=== PATIENT | male | born 1990 | race American Indian/Alaskan Native ===

== ENCOUNTER 2018-08-10 21:50 | Emergency (ER) | payer SELFPAY ==
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
[2018-08-10 22:32] LABS: Bilirubin,Urine NEG (Negative); Blood,Urine NEG (Negative); Color,Urine Straw (Yellow); Protein,Urine <15 mg/dL mg/dL (Negative); WBC,Urine < 1.0 /HPF (0.0-6.0)
[2018-08-10 22:40] LABS: Amphetamine Screen,Urine PRESUMPTIVE NEGATIVE; Benzodiazepines Screen,Urine PRESUMPTIVE NEGATIVE; Cannabinoid Screen,Urine PRESUMPTIVE NEGATIVE; Cocaine Screen,Urine PRESUMPTIVE NEGATIVE; Methadone Screen,Urine PRESUMPTIVE NEGATIVE; Opiate Screen,Urine PRESUMPTIVE NEGATIVE
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
[2018-08-10 23:06] LABS: Basophils # (Auto) 0.1 K/mm3 (0.0-0.1); Basophils % (Auto) 1.3 % (0.0-1.8); Eosinophils # (Auto) 0.2 K/mm3 (0.0-0.4); Eosinophils % (Auto) 2.5 % (0.0-4.3); Hematocrit 46.1 % (35.5-45.6); Lymphocytes # (Auto) 1.7 K/mm3 (1.2-5.4); Lymphocytes % (Auto) 20.7 % (13.4-35.0); Mean Corpuscular HGB Conc 33 % (32-34); Mean Corpuscular Volume 77 fl (84-94); Monocytes # (Auto) 0.5 K/mm3 (0.0-0.8); Monocytes % (Auto) 6.5 % (0.0-7.3); Platelet Count 263 K/mm3 (140-440); Red Blood Count 5.98 M/mm3 (3.65-5.03); Red Cell Distribution Width 14.3 % (13.2-15.2)
[2018-08-11 00:38] LABS: Alanine Aminotransferase 124 units/L (7-56); Albumin 4.8 g/dL (3.9-5); BUN/Creatinine Ratio 8; Blood Urea Nitrogen 8 mg/dL (9-20); Calcium 9.7 mg/dL (8.4-10.2); Hemolysis Index 11
[2018-08-11] MEDS ORDERED: HumuLIN R SUB-Q ONE (00:55)
[2018-08-11] MEDS: GLUCOPHAGE PO SCH ×3 (01:28→18:05)
[2018-08-11 09:25] LABS: Basophils # (Auto) 0.1 K/mm3 (0.0-0.1); Basophils % (Auto) 1.1 % (0.0-1.8); Eosinophils # (Auto) 0.3 K/mm3 (0.0-0.4); Hematocrit 44.7 % (35.5-45.6); Hemoglobin 14.3 gm/dl (11.8-15.2); Lymphocytes # (Auto) 1.7 K/mm3 (1.2-5.4); Lymphocytes % (Auto) 24.7 % (13.4-35.0); Mean Corpuscular HGB Conc 32 % (32-34); Mean Corpuscular Volume 76 fl (84-94); Monocytes # (Auto) 0.6 K/mm3 (0.0-0.8); Monocytes % (Auto) 8.6 % (0.0-7.3); Platelet Count 226 K/mm3 (140-440); Red Blood Count 5.88 M/mm3 (3.65-5.03); Red Cell Distribution Width 14.2 % (13.2-15.2)
[2018-08-11 09:48] LABS: Alanine Aminotransferase 108 units/L (7-56); Albumin 4.4 g/dL (3.9-5); BUN/Creatinine Ratio 11; Blood Urea Nitrogen 8 mg/dL (9-20); Calcium 9.1 mg/dL (8.4-10.2); Hemolysis Index 88
[2018-08-11] MEDS ORDERED: ATIVAN PO ONE (10:18)
--- NOTE | 2018-08-11 12:42 | Consultation ---
History of Present Illness - Reason for Consult Consult date: 08/11/18 Reason for consult: Mental Health Evaluation Requesting physician: JAQUELIN TORRES - Chief Complaint Chief complaint: "I feel horrible" - History of Present Psychiatric Illness 27 y.o. AA male who presented to the ER for HI/SI's. Today the patient is calm, but vague during the assessment. He stated that he was having issues with his health which has caused him to be suicidal. He wouldn't answers directly reference his mental health. He stated, "I don't feel at all." He would not confirm or deny seeing a psychiatrist when asked. He denies HI's and AVH's. He continues to endorse SI's, but would not confirm a suicide plan. Medications and Allergies Allergies Allergy/AdvReac Type Severity Reaction Status Date / Time No Known Allergies Allergy Unverified 08/10/18 21:54 Home Medications Medication Instructions Recorded Confirmed Last Taken Type Unobtainable 08/11/18 08/11/18 Unknown History Active Meds: Active Medications Metformin HCl (Glucophage) 500 mg PO BIDDIAB KIARA Last Admin: 08/11/18 10:25 Dose: 500 mg Documented by: Past psychiatric history - Past Medical History Past Medical History: diabetes Past Surgical History: No surgical history - past Psychiatric treatment and history psychiatric treatment history: Denies a psy hx and fam psy hx. Mental Status Exam - Vital signs Last Vital Signs Temp 98.0 F 08/11/18 02:41 Pulse 97 H 08/11/18 02:41 Resp 16 08/11/18 02:41 BP 127/87 08/11/18 02:41 Pulse Ox 100 08/11/18 02:41 - Exam Narrative exam: MSE: Appearance: calm Behavior: regular eye contact Speech: regular rate and tone Mood: withdrawn Affect: flat Thought Process: circumstantial Thought Content: denies HI's and AVH's Motor Activity: ambulatory Cognition: A/O x3 Insight: limited Judgment: poor Results Result Diagrams: 08/11/18 09:17 08/11/18 09:17 Abnormal lab results 08/10/18 08/10/18 08/11/18 Range/Units 22:36 22:36 00:54 RBC 5.98 H (3.65-5.03) M/mm3 Hct 46.1 H (35.5-45.6) % MCV 77 L (84-94) fl MCH 25 L (28-32) pg [place] % (Auto) (0.0-7.3) % Sodium 134 L (137-145) mmol/L Chloride 92.4 L (98-107) mmol/L BUN 8 L (9-20) mg/dL Creatinine (0.8-1.5) mg/dL Glucose 633 H* (75-100) mg/dL POC Glucose 469 H (70-105) AST 105 H (5-40) units/L ALT 124 H (7-56) units/L Alkaline Phosphatase 146 H (35-129) units/L Total Creatine Kinase (55-170) units/L Salicylates (2.8-20.0) mg/dL Acetaminophen (10.0-30.0) ug/mL 08/11/18 08/11/18 08/11/18 Range/Units 02: 09:17 09:17 RBC 5.88 H (3.65-5.03) M/mm3 Hct (35.5-45.6) % MCV 76 L (84-94) fl MCH 24 L (28-32) pg [place] % (Auto) 8.6 H (0.0-7.3) % Sodium 134 L (137-145) mmol/L Chloride 91.3 L (98-107) mmol/L BUN 8 L (9-20) mg/dL Creatinine 0.7 L (0.8-1.5) mg/dL Glucose 404 H (75-100) mg/dL POC Glucose 380 H (70-105) AST 94 H (5-40) units/L ALT 108 H (7-56) units/L Alkaline Phosphatase 140 H (35-129) units/L Total Creatine Kinase (55-170) units/L Salicylates (2.8-20.0) mg/dL Acetaminophen (10.0-30.0) ug/mL 08/11/18 08/11/18 08/11/18 Range/Units 09:17 10:16 10:23 RBC (3.65-5.03) M/mm3 Hct (35.5-45.6) % MCV (84-94) fl MCH (28-32) pg [place]alle % (Auto) (0.0-7.3) % Sodium (137-145) mmol/L Chloride (98-107) mmol/L BUN (9-20) mg/dL Creatinine (0.8-1.5) mg/dL Glucose (75-100) mg/dL POC Glucose 376 H (70-105) AST (5-40) units/L ALT (7-56) units/L Alkaline Phosphatase (35-129) units/L Total Creatine Kinase 197 H (55-170) units/L Salicylates < 0.3 L (2.8-20.0) mg/dL Acetaminophen (10.0-30.0) ug/mL 08/11/18 Range/Units 10:23 RBC (3.65-5.03) M/mm3 Hct (35.5-45.6) % MCV (84-94) fl MCH (28-32) pg [place] % (Auto) (0.0-7.3) % Sodium (137-145) mmol/L Chloride (98-107) mmol/L BUN (9-20) mg/dL Creatinine (0.8-1.5) mg/dL Glucose (75-100) mg/dL POC Glucose (70-105) AST (5-40) units/L ALT (7-56) units/L Alkaline Phosphatase (35-129) units/L Total Creatine Kinase (55-170) units/L Salicylates (2.8-20.0) mg/dL Acetaminophen < 5.0 L (10.0-30.0) ug/mL All other labs normal. Assessment and Plan Assessment and plan: Impression: MDD, Severe Type. Today the patient is calm, but vague during the assessment. The patient endorsed SI's. LF trending down. UDS is negative. DDx: R/O Bipolar DO Recommendation/Plan: Continue 1013 and start Zoloft 25 mg PO daily for depression. Discussed possible sucidality/medication induced rachelle with the patient reference Zoloft. Dispo: The patient will be referred to inpatient psy services once medically clear. Will staff with Dr Corcoran.
[2018-08-11] MEDS: ZOLOFT PO SCH (18:05)
[2018-08-12] MEDS ORDERED: IBUPROFEN PO ONE ×2 (02:24→02:25)
[2018-08-12] MEDS: GLUCOPHAGE PO SCH ×2 (08:52→17:11)
[2018-08-12] MEDS: ZOLOFT PO SCH (10:53)
[2018-08-12 11:42] LABS: Alanine Aminotransferase 78 units/L (7-56)
--- NOTE | 2018-08-12 13:53 | Progress Note ---
Subjective - Reason for Consult Consult date: 08/12/18 Reason for consult: Psychiatry Follow-up - Chief Complaint Chief complaint: "When can I be transferred" 27 y.o. AA male who presented to the ER for HI/SI's. Today the patient is calm during the assessment. He stated that he used Heroin a couple days prior to coming to the ER. His UDS is negative at this time. He stated having anxiety, but denies N/V and body aches. He would not confirm or deny SI's when asked. he denies HI's and AVH's. He denies any side effects of his medication. Mental Status Exam - Vital signs Last Vital Signs Temp 98.4 F 08/12/18 07:52 Pulse 99 H 08/12/18 07:52 Resp 20 08/12/18 07:52 BP 135/94 08/12/18 07:52 Pulse Ox 98 08/12/18 07:52 - Exam Narrative exam: MSE: Appearance: calm Behavior: regular eye contact Speech: regular rate and tone Mood: withdrawn Affect: congruent to mood Thought Process: circumstantial Thought Content: denies HI's and AVH's Motor Activity: ambulatory Cognition: A/O x3 Insight: variable Judgment:variable Assessment and Plan Impression: MDD, Severe Type. Unspecified Anxiety DO. Additional Dx: R/O Opioid Use DO. Today the patient is calm during the assessment. The patient will not confirm or deny SI's. LF trending down. UDS is negative. DDx: R/O Bipolar DO Recommendation/Plan: Continue 1013 and Zoloft 25 mg PO daily for depression/anxiety. Start Vistaril 25 mg PO TID for anxiety. Discussed possible sucidality/medication induced rachelle with the patient reference Zoloft. Dispo: The patient wias referred to inpatient psy services. Will staff with Dr Corcoran.
[2018-08-12] MEDS: VISTARIL PO SCH ×2 (14:25→20:38)
[2018-08-12] MEDS: HumuLIN R IV PRN (17:19)
[2018-08-13] MEDS: HumuLIN R IV PRN ×3 (08:18→17:51)
[2018-08-13] MEDS: GLUCOPHAGE PO SCH ×2 (08:19→17:48)
[2018-08-13] MEDS: VISTARIL PO SCH ×3 (08:19→22:18)
[2018-08-13] MEDS: ZOLOFT PO SCH (09:45)
[2018-08-13] MEDS ORDERED: ALUM-MAG HYDROX-SIMETH 200-200-20MG/5ML PO ONE (13:31)
[2018-08-13 13:36] LABS: Basophils # (Auto) 0.1 K/mm3 (0.0-0.1); Basophils % (Auto) 0.8 % (0.0-1.8); Eosinophils # (Auto) 0.2 K/mm3 (0.0-0.4); Eosinophils % (Auto) 2.7 % (0.0-4.3); Hematocrit 45.5 % (35.5-45.6); Hemoglobin 14.7 gm/dl (11.8-15.2); Lymphocytes # (Auto) 1.6 K/mm3 (1.2-5.4); Lymphocytes % (Auto) 23.7 % (13.4-35.0); Mean Corpuscular HGB Conc 32 % (32-34); Mean Corpuscular Volume 78 fl (84-94); Monocytes # (Auto) 0.6 K/mm3 (0.0-0.8); Monocytes % (Auto) 8.4 % (0.0-7.3); Platelet Count 250 K/mm3 (140-440); Red Blood Count 5.87 M/mm3 (3.65-5.03); Red Cell Distribution Width 14.2 % (13.2-15.2)
[2018-08-13 14:29] LABS: Alanine Aminotransferase 58 units/L (7-56); Albumin 4.4 g/dL (3.9-5); BUN/Creatinine Ratio 11; Blood Urea Nitrogen 10 mg/dL (9-20); Calcium 9.3 mg/dL (8.4-10.2); Hemolysis Index 11
[2018-08-13 14:31] LABS: Bilirubin,Direct < 0.2 mg/dL (0-0.2)
[2018-08-13 14:36] LABS: Hepatitis B Surface Antigen Non-Reactive (Negative); Hepatitis C Virus Antibody Reactive (NonReactive)
[2018-08-13] MEDS ORDERED: HumuLIN R IV ONE (14:50)
[2018-08-13] MEDS ORDERED: NACL 0.9% 1000 ML 1,000 ML IV ONE (14:50)
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
[2018-08-13] MEDS: TYLENOL PO PRN (20:38)
[2018-08-14] MEDS: GLUCOPHAGE PO SCH ×2 (08:02→18:37)
[2018-08-14] MEDS: VISTARIL PO SCH ×3 (08:02→20:09)
[2018-08-14] MEDS: TYLENOL PO PRN (08:05)
[2018-08-14] MEDS: WELLBUTRIN SR PO SCH (09:48)
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
[2018-08-14] MEDS: HALDOL IM PRN (14:57)
[2018-08-14] MEDS: ATIVAN IM PRN (14:57)
[2018-08-14] MEDS: HumuLIN R IV PRN (18:38)
[2018-08-15] MEDS: GLUCOPHAGE PO SCH ×2 (09:21→17:53)
[2018-08-15] MEDS: VISTARIL PO SCH ×3 (09:21→22:01)
[2018-08-15] MEDS: WELLBUTRIN SR PO SCH (11:03)
--- NOTE | 2018-08-15 11:47 | Progress Note ---
Subjective - Reason for Consult Consult date: 08/15/18 Reason for consult: Psychiatry Follow-up - Chief Complaint Chief complaint: "All isn;t well with me" 27 y.o. male who presented to the emergency room for HI/SI's. Today the patient is calm during the assessment. He stated he could explain how he's feeling at this time. He stated that his medication are not working like they should. He denies SI's, but would not confirm or deny HI's when asked. He denies AVH"s. He denies any side effects of hie medication. Mental Status Exam - Vital signs Last Vital Signs Temp 98.1 F 08/15/18 00:00 Pulse 91 H 08/15/18 00:00 Resp 16 08/15/18 00:00 BP 110/61 08/15/18 00:00 Pulse Ox 100 08/15/18 00:00 - Exam Narrative exam: MSE: Appearance: calm Behavior: regular eye contact Speech: regular rate and tone Mood: withdrawn, guarded Affect: congruent to mood Thought Process: circumstantial Thought Content: denies SI's and AVH's Motor Activity: ambulatory Cognition: A/O x3 Insight: variable Judgment: variable Assessment and Plan Impression: MDD, Severe Type. Today the patient is calm during the assessment. UDS is negative. DDx: R/O Bipolar DO Recommendation/Plan: Continue 1013 and Seroquel 200 mg PO HS for mood and Wellbutrin 100 mg PO daily for depression. Discussed possible sucidality/medication induced rachelle with the patient reference Wellbutrin. Dispo: The patient was referred to inpatient psy services. Will staff with Dr Cesar Paul.
[2018-08-15] MEDS: HumuLIN R IV PRN ×2 (13:08→22:58)
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
[2018-08-15] MEDS: TYLENOL PO PRN (22:00)
[2018-08-15] MEDS: ATIVAN IM PRN (22:57)
[2018-08-16] MEDS: ATIVAN IM PRN ×2 (08:14→14:10)
[2018-08-16] MEDS: VISTARIL PO SCH ×3 (08:14→20:43)
[2018-08-16] MEDS: GLUCOPHAGE PO SCH ×2 (08:14→17:51)
[2018-08-16] MEDS: HALDOL IM PRN ×2 (08:15→14:10)
[2018-08-16] MEDS: HumuLIN R IV PRN (08:15)
[2018-08-16] MEDS: WELLBUTRIN SR PO SCH (09:30)
--- NOTE | 2018-08-16 14:02 | Progress Note ---
Subjective - Reason for Consult Consult date: 08/16/18 Reason for consult: Psychiatry Follow-up - Chief Complaint Chief complaint: "I feel a little better" 27 y.o. male who presented to the emergency room for HI/SI's. Today the patient is calm and cooperative during the assessment. He stated his SI/HI's has ceased, but still stated that he feels depressed. He denies AVH's. He denies any side effects of his medications. Mental Status Exam - Vital signs Last Vital Signs Temp 97.8 F 08/16/18 07:20 Pulse 104 H 08/16/18 07:20 Resp 18 08/16/18 07:20 BP 115/81 08/16/18 07:20 Pulse Ox 99 08/16/18 07:20 - Exam Narrative exam: MSE: Appearance: calm Behavior: regular eye contact Speech: regular rate and tone Mood: "A little better" Affect: flat Thought Process: circumstantial Thought Content: denies SI/HI's and AVH's Motor Activity: ambulatory Cognition: A/O x3 Insight: fair Judgment: fair Assessment and Plan Impression: MDD, Severe Type. Today the patient is calm during the assessment. UDS is negative. DDx: R/O Bipolar DO Recommendation/Plan: Reevaluate 1013 in 24 hours. Continue Seroquel 200 mg PO HS for mood and Wellbutrin 100 mg PO daily for depression. Discussed possible sucidality/medication induced rachelle with the patient reference Wellbutrin. Dispo: If the patient's 1013 is rescinded, he can follow up with [facility] for outpatient psy services. Staffed with Dr Bobby Paul.
[2018-08-16] MEDS: TYLENOL PO PRN (17:51)
[2018-08-17] MEDS: VISTARIL PO SCH ×3 (08:47→20:15)
[2018-08-17] MEDS: GLUCOPHAGE PO SCH (08:47)
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
[2018-08-17] MEDS: HumuLIN R IV PRN (08:54)
[2018-08-17] MEDS: WELLBUTRIN SR PO SCH (10:47)
[2018-08-17] MEDS: TYLENOL PO PRN ×2 (10:49→19:55)
[2018-08-17] MEDS: ATIVAN IM PRN (13:03)
--- NOTE | 2018-08-17 13:59 | Consultation ---
History of Present Illness - Reason for Consult Consult date: 08/17/18 Requesting physician: MAGDALENE MARCH - History of Present Illness 27 YO Male with Bipolar, Schizophrenia, Nicotine Dependence with Suicide Ideation. Consult placed for new onset Diabetes. Pt seen and evaluated in ED and found to have uncontrolled diabetes. Past History Past Medical History: diabetes Past Surgical History: No surgical history, Other (reviewed) Social history: single, smoking. denies: alcohol abuse, prescription drug abuse, IV drug use Family history: no significant family history (reviewed) Medications and Allergies Allergies Allergy/AdvReac Type Severity Reaction Status Date / Time No Known Allergies Allergy Unverified 08/10/18 21:54 Home Medications Medication Instructions Recorded Confirmed Last Taken Type Unobtainable 08/11/18 08/11/18 Unknown History Active Meds: Active Medications Acetaminophen (Tylenol) 650 mg PO Q6H PRN PRN Reason: Pain, Mild (1-3) Last Admin: 08/17/18 10:49 Dose: 650 mg Documented by: Bupropion HCl (Wellbutrin Sr) 150 mg PO DAILY [facility] Last Admin: 08/17/18 10:47 Dose: 150 mg Documented by: Haloperidol Lactate (Haldol) 5 mg IM Q6H PRN PRN Reason: Psychosis Last Admin: 08/16/18 14:10 Dose: 5 mg Documented by: Hydroxyzine Pamoate (Vistaril) 25 mg PO TID [facility] Last Admin: 08/17/18 08:47 Dose: 25 mg Documented by: Insulin Human Regular (Humulin R) 0 units IV QAC PRN; Protocol PRN Reason: Hyperglycemia Last Admin: 08/17/18 08:54 Dose: 4 units Documented by: Lorazepam (Ativan) 1 mg IM Q4H PRN PRN Reason: Anxiety Last Admin: 08/17/18 13:03 Dose: 1 mg Documented by: Quetiapine Fumarate (Seroquel) 200 mg PO HS [facility] Last Admin: 08/16/18 22:13 Dose: 200 mg Documented by: Review of Systems Constitutional: no weight loss, no weight gain, no fever, no chills Ears, nose, mouth and throat: no ear pain, no ear discharge, no tinnitis, no decreased hearing, no nose pain Cardiovascular: no chest pain, no orthopnea, no palpitations, no rapid/irregular heart beat, no edema Respiratory: no cough, no cough with sputum, no excessive sputum, no hemoptysis, no shortness of breath Gastrointestinal: no nausea, no vomiting, no diarrhea, no constipation Genitourinary Male: no hematuria, no flank pain, no discharge, no urinary frequency, no nocturia Rectal: no pain, no incontinence, no bleeding Musculoskeletal: no neck stiffness, no neck pain, no shooting arm pain, no arm numbness/tingling, no low back pain Integumentary: no rash, no pruritis, no redness, no sores, no wounds Neurological: no paralysis, no weakness, no parathesias, no numbness, no tingling Psychiatric: no memory loss, no change in sleep habits, no sleep disturbances, no insomnia, no hypersomnia Endocrine: no cold intolerance, no heat intolerance, no polyphagia, no excessive thirst Hematologic/Lymphatic: no easy bruising, no easy bleeding Allergic/Immunologic: no urticaria, no allergic rhinitis, no wheezing Exam - Constitutional Vitals: Temp Pulse Resp BP Pulse Ox 98.5 F 94 H 16 125/67 94 08/17/18 09:44 08/17/18 09:40 08/17/18 10:49 08/17/18 09:40 08/17/18 09:40 General appearance: Present: no acute distress, well-nourished - EENT Eyes: Present: PERRL ENT: hearing intact, clear oral mucosa - Neck Neck: Present: supple, normal ROM - Respiratory Respiratory effort: normal Respiratory: bilateral: CTA - Cardiovascular Heart Sounds: Present: S1 & S2. Absent: rub, click - Extremities Extremities: pulses symmetrical, No edema Peripheral Pulses: within normal limits - Abdominal General gastrointestinal: Present: soft, non-tender, non-distended, normal bowel sounds Male genitourinary: Present: normal - Integumentary Integumentary: Present: clear, warm, dry - Musculoskeletal Musculoskeletal: gait normal, strength equal bilaterally - Psychiatric Psychiatric: appropriate mood/affect, intact judgment & insight - Neurologic Neurologic: CNII-XII intact, moves all extremities Results - Labs CBC & Chem 7: 08/13/18 13:25 08/13/18 13:25 Labs: Abnormal lab results 08/16/18 08/17/18 08/17/18 Range/Units 17:48 08:43 12:32 POC Glucose 280 H 276 H 255 H (70-105) Assessment and Plan - Patient Problems (1) Diabetes Status: Acute Plan to address problem: Sliding scale insulin, D/C Metformin, accu check, consistent carbohydrate diet, Scheduled insulin, adjust basal insulin to obtain a serum glucose between 125- 185
[2018-08-17] MEDS ORDERED: D50W (25GM) Syringe IV PRN (14:15)
[2018-08-17] MEDS: HumaLOG SUB-Q SCH (18:22)
[2018-08-17] MEDS ORDERED: HumaLOG SUB-Q ONE (18:22)
[2018-08-18] MEDS: HumaLOG SUB-Q SCH ×4 (00:04→18:39)
[2018-08-18] MEDS: VISTARIL PO SCH ×3 (09:29→20:36)
[2018-08-18] MEDS: WELLBUTRIN SR PO SCH (11:05)
--- NOTE | 2018-08-18 11:05 | Progress Note ---
Subjective - Reason for Consult Consult date: 08/18/18 Reason for consult: Psychiatry Follow-up - Chief Complaint Chief complaint: "I haven't been sleeping " 27 y.o. male who presented to the emergency room for HI/SI's. Today the patient is calm during the assessment. He still would not confirm or deny HI's. He stated that he isn't sleeping well at night. He denies SI's and AVH's. He denies any side effects of his medications. Mental Status Exam - Vital signs Last Vital Signs Temp 97.7 F 08/18/18 02:00 Pulse 84 08/18/18 02:00 Resp 18 08/18/18 02:00 BP 98/50 08/18/18 02:00 Pulse Ox 99 08/18/18 02:00 - Exam Narrative exam: MSE: Appearance: calm Behavior: regular eye contact Speech: regular rate and tone Mood: "okay" Affect: flat Thought Process: circumstantial Thought Content: denies SI's and AVH's Motor Activity: ambulatory Cognition: A/O x3 Insight: variable Judgment: variable Assessment and Plan Impression: MDD, Severe Type. Today the patient is calm during the assessment. The patient will not confirm or deny HI's. UDS is negative. DDx: R/O Bipolar DO Recommendation/Plan: Continue 1013, Wellbutrin 150 mg PO daily for depression, and Vistaril 25 mg PO TID for anxiety. Start Trazodone 50 mg PO HS for sleep. Discussed possible sucidality/medication induced rachelle with the patient reference Wellbutrin/Trazodone. Also, discussed possible priapism with the patient reference Trazodone Dispo: The patient was referred to inpatient psy services. Staffed with Dr Corcoran.
[2018-08-18] MEDS: HALDOL IM PRN (19:26)
[2018-08-18] MEDS: DESYREL PO SCH (23:03)
[2018-08-19] MEDS: HumaLOG SUB-Q SCH ×3 (00:10→13:16)
[2018-08-19] MEDS: DESYREL PO SCH (00:54)
[2018-08-19] MEDS: HALDOL IM PRN (07:48)
[2018-08-19] MEDS: VISTARIL PO SCH ×2 (07:48→14:20)
[2018-08-19] MEDS: WELLBUTRIN SR PO SCH (10:06)
--- NOTE | 2018-08-19 13:35 | Progress Note ---
Subjective - Reason for Consult Consult date: 08/19/18 Reason for consult: Psychiatry Follow-up - Chief Complaint Chief complaint: "I am okay" 27 y.o. male who presented to the emergency room for HI/SI's. Today the patient is calm and cooperative during the assessment. He stated that he slept okay last night. He stated the he will follow up with outpatient psy services when discharged. He denies SI/HI's and AVH's. He denies any side effects of his medications. Mental Status Exam - Vital signs Last Vital Signs Temp 98.4 F 08/19/18 08:24 Pulse 92 H 08/19/18 08:24 Resp 18 08/19/18 08:24 BP 113/81 08/19/18 08:24 Pulse Ox 99 08/19/18 08:24 - Exam Narrative exam: MSE: Appearance: julian, cooperative Behavior: regular eye contact Speech: regular rate and tone Mood: "okay" Affect: congruent to mood Thought Process: linear Thought Content: denies SI/HI's and AVH's Motor Activity: ambulatory Cognition: A/O x3 Insight: appropriate Judgment: appropriate Assessment and Plan Impression: MDD, Severe Type. Today the patient is calm during the assessment. The patient will not confirm or deny HI's. UDS is negative. The patient is no threat to self or others. DDx: R/O Bipolar DO Recommendation/Plan: Rescind 1013. Continue Wellbutrin 150 mg PO daily for depression, Vistaril 25 mg PO TID for anxiety, and Trazodone 50 mg PO HS for sleep. Discussed possible sucidality/medication induced rachelle with the patient reference Wellbutrin/Trazodone. Also, discussed possible priapism with the patient reference Trazodone Dispo: The patient can follow up with [facility] for outpatient psy services. Staffed with Dr Corcoran.
[2018-08-19 13:41] VITALS: BP 105/74
== END 2018-08-19 14:47 | disposition home or self-care (01) ==
LOC: ED 21:50 → EEVIPCON 21:50 → ED 08-19 14:47
DX: F32.9 Major depressive disorder, single episode, unspecified (principal); F29 Unspecified psychosis not due to a substance or known physiological condition; R10.9 Unspecified abdominal pain; F20.9 Schizophrenia, unspecified; F90.9 Attention-deficit hyperactivity disorder, unspecified type; F41.9 Anxiety disorder, unspecified; R73.9 Hyperglycemia, unspecified; F17.200 Nicotine dependence, unspecified, uncomplicated; F11.10 Opioid abuse, uncomplicated
CPT/HCPCS: 36415; 74177; 80048; 80053; 80074; 80076; 80307; 81001; 82010; 82550; 82962; 83690; 83735; 84075; 84443; 84450; 84460; 84484; 85025; 96361; 96372; 96374; 99285; G0480; J1630; J2060; J7030; Q9967; 80320; 96376; J1815; Q0177

== ENCOUNTER 2019-09-27 00:54 | Emergency (ER) | payer SELFPAY ==
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
[2019-09-27] MEDS ORDERED: SODIUM CHLORIDE 0.9% 1000 ML 1,000 ML IV ONE (02:20)
[2019-09-27] MEDS ORDERED: MORPHINE 4 MG/1 ML INJ IV ONE (02:20)
[2019-09-27] MEDS ORDERED: ONDANSETRON 4 MG/2 ML INJ IV ONE (02:20)
[2019-09-27] MEDS ORDERED: CLINDAMYCIN 600 MG/50 mL 600 MG/50 ML BAG IV ONE (02:20)
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
[2019-09-27 03:19] LABS: Alanine Aminotransferase 22 units/L (7-56); Albumin 4.4 g/dL (3.9-5); BUN/Creatinine Ratio 13; Blood Urea Nitrogen 10 mg/dL (9-20); Calcium 9.9 mg/dL (8.4-10.2); Hemolysis Index 26
[2019-09-27 03:45] LABS: Basophils # (Auto) 0.1 K/mm3 (0.0-0.1); Eosinophils # (Auto) 0.2 K/mm3 (0.0-0.4); Hematocrit 36.4 % (35.5-45.6); Hemoglobin 11.5 gm/dl (11.8-15.2); Lymphocytes # (Auto) 2.3 K/mm3 (1.2-5.4); Lymphocytes % (Auto) 24.2 % (13.4-35.0); Mean Corpuscular HGB Conc 32 % (32-34); Mean Corpuscular Volume 72 fl (84-94); Monocytes # (Auto) 1.1 K/mm3 (0.0-0.8); Monocytes % (Auto) 11.7 % (0.0-7.3); Platelet Count 400 K/mm3 (140-440); Red Blood Count 5.05 M/mm3 (3.65-5.03); Red Cell Distribution Width 15.8 % (13.2-15.2)
--- NOTE | 2019-09-27 04:28 | Vascular Lab Report ---
VL venous duplex LE LT INDICATION / CLINICAL INFORMATION: LLE swelling, pain, erythema. Doppler ultrasound and spectral analysis was performed on the left lower extremity COMPARISON: None available. FINDINGS: The left common femoral, superficial femoral, popliteal and calf veins were identified. The veins wer e all compressible no obvious thrombus is seen. Normal Doppler flow seen in each vessel. IMPRESSION: No evidence of deep venous thrombosis of the left lower extremity Signer Name: Lobito Acuña MD FACR Signed: 09/27/2019 4:23 AM Workstation Name: [id number]
[2019-09-27 05:46] VITALS: BP 131/66
== END 2019-09-27 04:00 | disposition home or self-care (01) ==
LOC: ED 00:54
DX: M79.605 Pain in left leg (principal); R50.9 Fever, unspecified; F90.9 Attention-deficit hyperactivity disorder, unspecified type; F25.0 Schizoaffective disorder, bipolar type; Z98.890 Other specified postprocedural states; Z87.891 Personal history of nicotine dependence; Z53.9 Procedure and treatment not carried out, unspecified reason
CPT/HCPCS: 36415; 73590; 80053; 82140; 85025; 93971; 96365; 96375; 99284; J2270; J2405; J7030

== ENCOUNTER 2020-01-25 22:40 | Emergency (ER) | payer SELFPAY ==
[2020-01-26 05:27] LABS: Basophils # (Auto) 0.1 K/mm3 (0.0-0.1); Basophils % (Auto) 1.2 % (0.0-1.8); Eosinophils # (Auto) 0.4 K/mm3 (0.0-0.4); Eosinophils % (Auto) 3.8 % (0.0-4.3); Hematocrit 40.7 % (35.5-45.6); Hemoglobin 13.3 gm/dl (11.8-15.2); Lymphocytes # (Auto) 4.2 K/mm3 (1.2-5.4); Lymphocytes % (Auto) 41.3 % (13.4-35.0); Mean Corpuscular HGB Conc 33 % (32-34); Mean Corpuscular Volume 74 fl (84-94); Monocytes # (Auto) 0.7 K/mm3 (0.0-0.8); Monocytes % (Auto) 6.9 % (0.0-7.3); Platelet Count 276 K/mm3 (140-440); Red Blood Count 5.51 M/mm3 (3.65-5.03); Red Cell Distribution Width 16.2 % (13.2-15.2)
[2020-01-26 05:50] LABS: Alanine Aminotransferase 15 units/L (7-56); Albumin 4.8 g/dL (3.9-5); BUN/Creatinine Ratio 15; Blood Urea Nitrogen 12 mg/dL (9-20); Calcium 9.7 mg/dL (8.4-10.2); Hemolysis Index 7
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
[2020-01-26] MEDS ORDERED: HYDROcodone/ACETAMINOPHEN 5-325 MG TAB PO ONE (06:24)
[2020-01-26] MEDS ORDERED: SULFAMETHOXAZOLE/TRIMETHOPRIM 800/160MG DS TAB PO ONE (06:25)
[2020-01-26 06:36] VITALS: BP 124/80
== END 2020-01-26 06:48 | disposition admitted as inpatient to this hospital (09) ==
LOC: ED 22:40
DX: L03.113 Cellulitis of right upper limb (principal); E11.9 Type 2 diabetes mellitus without complications; F31.9 Bipolar disorder, unspecified; Z98.890 Other specified postprocedural states; Z87.891 Personal history of nicotine dependence; Z79.84 Long term (current) use of oral hypoglycemic drugs; Z79.899 Other long term (current) drug therapy
CPT/HCPCS: 36415; 80053; 80320; 82962; 85025; G0480

== ENCOUNTER 2020-09-11 11:01 | Emergency (ER) | payer SELFPAY ==
[2020-09-11 11:14] VITALS: BP 127/83
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
--- NOTE | 2020-09-11 13:31 | Vascular Lab Report ---
DUPLEX DOPPLER LOWER EXTREMITY VEINS, BILATERAL INDICATION: pain in legs. TECHNIQUE: Duplex doppler imaging was performed through the veins of both lower extremities using ve nous compression and other maneuvers. COMPARISON: No relevant prior imaging study available. FINDINGS: Right Common femoral vein: Negative. Right Superficial femoral vein: Negative. Right Popliteal vein: Negative. Right Calf veins: Negative. Left Common femoral vein: Negative. Left Superficial femoral vein: Negative. Left Popliteal vein: Negative. Left Calf veins: Negative. Additional findings: None. IMPRESSION: No sonographic evidence for DVT in either lower extremity. Signer Name: Yassine Kate Jr, MD Signed: 09/11/2020 1:27 PM Workstation Name: [id number]
== END 2020-09-11 13:57 | disposition home or self-care (01) ==
LOC: ED 11:01
DX: M79.604 Pain in right leg (principal); M79.605 Pain in left leg; F25.0 Schizoaffective disorder, bipolar type; Z98.890 Other specified postprocedural states; Z79.899 Other long term (current) drug therapy
CPT/HCPCS: 36415; 85379; 93970

== ENCOUNTER 2020-09-23 21:41 | Emergency (ER) | payer SELFPAY ==
[2020-09-23 22:11] VITALS: BP 140/85
[2020-09-24] MEDS ORDERED: ACETAMINOPHEN 500 MG TAB PO ONE (02:40)
[2020-09-24] MEDS ORDERED: diphenhydrAMINE 25 MG CAP PO ONE (02:40)
[2020-09-24] MEDS ORDERED: cephALEXin 500 MG CAP PO ONE (02:40)
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
== END 2020-09-24 03:25 | disposition home or self-care (01) ==
LOC: ED 21:41 → EEVIPCON 21:41 → ED 23:00
DX: L02.419 Cutaneous abscess of limb, unspecified (principal); L73.9 Follicular disorder, unspecified; G89.29 Other chronic pain; F25.0 Schizoaffective disorder, bipolar type; F32.9 Major depressive disorder, single episode, unspecified; Z98.890 Other specified postprocedural states; Z79.899 Other long term (current) drug therapy
CPT/HCPCS: 99282

== ENCOUNTER 2021-04-17 01:58 | Inpatient (IN) | payer SELFPAY ==
[2021-04-17] MEDS ORDERED: CLINDAMYCIN 300 MG/50 mL 300 MG/50 ML BAG IV ONE (02:28)
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
[2021-04-17 03:34] LABS: Hematocrit 27.6 % (35.5-45.6); Hemoglobin 8.8 gm/dl (11.8-15.2); Mean Corpuscular HGB Conc 32 % (32-34); Mean Corpuscular Volume 70 fl (84-94); Platelet Count 277 K/mm3 (140-440); Red Blood Count 3.92 M/mm3 (3.65-5.03); Red Cell Distribution Width 18.5 % (13.2-15.2)
[2021-04-17 03:36] LABS: Alanine Aminotransferase 33 units/L (7-56); Basophils % (Auto) 0.5 % (0.0-1.8); Blood Urea Nitrogen 13 mg/dL (9-20); Calcium 9.2 mg/dL (8.4-10.2); Eosinophils # (Auto) 0.5 K/mm3 (0.0-0.4); Hemolysis Index 0; Lymphocytes # (Auto) 0.9 K/mm3 (1.2-5.4); Lymphocytes % (Auto) 16.2 % (13.4-35.0); Monocytes # (Auto) 0.6 K/mm3 (0.0-0.8); Monocytes % (Auto) 10.1 % (0.0-7.3)
[2021-04-17 03:37] LABS: BUN/Creatinine Ratio 19
[2021-04-17] MEDS ORDERED: SODIUM CHLORIDE 0.9% 1000 ML 1,000 ML IV ONE (03:52)
[2021-04-17] MEDS ORDERED: HYDROmorphone 1 MG/1 ML INJ IV ONE ×2 (03:52→04:40)
[2021-04-17] MEDS ORDERED: ONDANSETRON 4 MG/2 ML INJ IV ONE (03:52)
[2021-04-17] MEDS ORDERED: diphenhydrAMINE 50 MG/ML VIAL IV ONE (04:10)
[2021-04-17] MEDS ORDERED: oxyCODONE /ACETAMINOPHEN 5-325MG TAB PO PRN (05:22)
[2021-04-17] MEDS ORDERED: ALBUTEROL 2.5 MG/3 ML NEBU IH PRN (05:22)
[2021-04-17] MEDS ORDERED: ONDANSETRON 4 MG/2 ML INJ IV PRN (05:22)
[2021-04-17] MEDS ORDERED: ACETAMINOPHEN 325 MG TAB PO PRN (05:22)
[2021-04-17] MEDS ORDERED: diphenhydrAMINE 50 MG CAP PO PRN (05:24)
[2021-04-17] MEDS ORDERED: IBUPROFEN 600 MG TAB PO PRN (05:24)
--- NOTE | 2021-04-17 05:30 | History and Physical Report ---
History of Present Illness Date of examination: 04/17/21 Date of admission: 04/17/21 03:53 Chief complaint: Cellulitis Multiple open wound History of present illness: 30 years old multiple open wound and extremity swelling for the last couple of days. Patient is having severe pain. Due to widespread nature of cellulitis and open wound the patient will be admitted to the hospital. Patient states that he has previously taken antibiotic. In the emergency room patient is found to have multiple open in both upper and lower extremities Past History Past Medical History: diabetes, other (Cellulitis and open wounds) Medications and Allergies Allergies Allergy/AdvReac Type Severity Reaction Status Date / Time sulfamethoxazole Allergy Rash Verified 04/17/21 02:14 [From Bactrim] trimethoprim [From Bactrim] Allergy Rash Verified 04/17/21 02:14 Home Medications Medication Instructions Recorded Confirmed Last Taken Type Metformin HCl [Glucophage] 500 mg PO BID #60 tablet 08/19/18 Unknown Rx buPROPion SR [Wellbutrin SR] 150 mg PO DAILY #30 tablet 08/19/18 Unknown Rx hydrOXYzine PAMOATE [Vistaril] 25 mg PO TID #90 capsule 08/19/18 Unknown Rx traZODone [Desyrel] 50 mg PO QHS #30 tab 08/19/18 Unknown Rx Acetaminophen/Codeine [Tylenol 1 tab PO Q6H PRN #6 tab 09/27/19 Unknown Rx /Codeine # 3 tab] HYDROcodone/APAP 5-325 [[place] 1 each PO Q6HR PRN #7 tablet 01/26/20 Unknown Rx 5/325] Sulfamethoxazole/Trimethoprim 1 each PO BID 10 Days #20 tablet 01/26/20 Unknown Rx [Bactrim DS TAB] metFORMIN [Glucophage] 500 mg PO BID #60 tablet 01/26/20 Unknown Rx Ibuprofen [Motrin] 600 mg PO Q8H PRN #20 tablet 09/24/20 Unknown Rx Mupirocin [Bactroban 2% OINT] 1 applic TP TID #1 tube 09/24/20 Unknown Rx Sulfamethoxazole/Trimethoprim 1 each PO BID #20 tablet 09/24/20 Unknown Rx [Bactrim DS TAB] diphenhydrAMINE [Benadryl CAP] 50 mg PO Q8HR PRN #30 capsule 09/24/20 Unknown Rx Review of Systems All systems: negative Constitutional: other (Pain) Musculoskeletal: other (Multiple upper and lower extremity wounds) Exam - Constitutional Vitals: Temp Pulse Resp BP Pulse Ox 98 F 81 17 123/59 98 04/17/21 05:14 04/17/21 05:14 04/17/21 05:14 04/17/21 05:14 04/17/21 05:14 General appearance: Present: no acute distress, well-nourished - EENT Eyes: Present: PERRL ENT: hearing intact, clear oral mucosa - Neck Neck: Present: supple, normal ROM - Respiratory Respiratory effort: normal Respiratory: bilateral: CTA - Cardiovascular Heart Sounds: Present: S1 & S2. Absent: rub, click - Extremities Extremities: pulses symmetrical Extremity abnormal: edema, other (Multiple upper and lower extremity wounds) Peripheral Pulses: within normal limits - Abdominal General gastrointestinal: Present: soft, non-tender, non-distended, normal bowel sounds Male genitourinary: Present: normal - Integumentary Integumentary: Present: clear, warm, dry - Musculoskeletal Musculoskeletal: gait normal, strength equal bilaterally - Psychiatric Psychiatric: appropriate mood/affect, intact judgment & insight - Neurologic Neurologic: CNII-XII intact, moves all extremities Results - Labs CBC & Chem 7: 04/17/21 03:05 04/17/21 03:05 Labs: Laboratory Last Values WBC 5.7 K/mm3 (4.5-11.0) 04/17/21 03:05 RBC 3.92 M/mm3 (3.65-5.03) 04/17/21 03:05 Hgb 8.8 gm/dl (11.8-15.2) L 04/17/21 03:05 Hct 27.6 % (35.5-45.6) L 04/17/21 03:05 MCV 70 fl (84-94) L 04/17/21 03:05 MCH 23 pg (28-32) L 04/17/21 03:05 MCHC 32 % (32-34) 04/17/21 03:05 RDW 18.5 % (13.2-15.2) H 04/17/21 03:05 Plt Count 277 K/mm3 (140-440) 04/17/21 03:05 Lymph % (Auto) 16.2 % (13.4-35.0) 04/17/21 03:05 [place] % (Auto) 10.1 % (0.0-7.3) H 04/17/21 03:05 Eos % (Auto) 8.0 % (0.0-4.3) H 04/17/21 03:05 Baso % (Auto) 0.5 % (0.0-1.8) 04/17/21 03:05 Lymph # (Auto) 0.9 K/mm3 (1.2-5.4) L 04/17/21 03:05 [place] # (Auto) 0.6 K/mm3 (0.0-0.8) 04/17/21 03:05 Eos # (Auto) 0.5 K/mm3 (0.0-0.4) H 04/17/21 03:05 Baso # (Auto) 0.0 K/mm3 (0.0-0.1) 04/17/21 03:05 Seg Neutrophils % 65.2 % (40.0-70.0) 04/17/21 03:05 Seg Neutrophils # 3.7 K/mm3 (1.8-7.7) 04/17/21 03:05 Sodium 138 mmol/L (137-145) 04/17/21 03:05 Potassium 4.2 mmol/L (3.6-5.0) 04/17/21 03:05 Chloride 100.1 mmol/L (98-107) 04/17/21 03:05 Carbon Dioxide 27 mmol/L (22-30) 04/17/21 03:05 Anion Gap 15 mmol/L 04/17/21 03:05 BUN 13 mg/dL (9-20) 04/17/21 03:05 Creatinine 0.7 mg/dL (0.8-1.3) L 04/17/21 03:05 Estimated GFR > 60 ml/min 04/17/21 03:05 BUN/Creatinine Ratio 19 % 04/17/21 03:05 Glucose 148 mg/dL (75-100) H 04/17/21 03:05 Calcium 9.2 mg/dL (8.4-10.2) 04/17/21 03:05 Total Bilirubin 0.20 mg/dL (0.1-1.2) 04/17/21 03:05 AST 78 units/L (5-40) H 04/17/21 03:05 ALT 33 units/L (7-56) 04/17/21 03:05 Alkaline Phosphatase 160 units/L (35-129) H 04/17/21 03:05 Total Protein 7.7 g/dL (6.3-8.2) 04/17/21 03:05 Albumin 4.0 g/dL (3.9-5) 04/17/21 03:05 Albumin/Globulin Ratio 1.1 % 04/17/21 03:05 Assessment and Plan VTE prophylaxis?: Chemical Plan of care discussed with patient/family: Yes - Patient Problems (1) Cellulitis Current Visit: Yes Status: Acute Qualifiers: Site of cellulitis: extremity Site of cellulitis of extremity: upper extremity Laterality: unspecified laterality Qualified Code(s): L03.119 - Cellulitis of unspecified part of limb Plan to address problem: Admit the patient to the medical floor. Zosyn 4.5 g IV every 8 hours. Will consult wound care evaluation. We also do a blood culture wound culture. Recheck CBC in the morning (2) Multiple open wounds Current Visit: Yes Status: Acute Plan to address problem: Zosyn 4.5 g IV every 8 hours. Will consult wound care evaluation. We also do a blood culture wound culture. Recheck CBC in the morning (3) Diabetes Current Visit: No Status: Acute Plan to address problem: Metformin 500 mg p.o. twice daily. Diabetic education. Recheck BMP in the morning. We continue the home medication (4) DVT prophylaxis Current Visit: Yes Status: Acute Plan to address problem: Heparin 5000 units subcu every 8 hours for DVT prophylaxis. Pepcid 20 mg p.o. twice daily for GI prophylaxis. Patient is a full code
[2021-04-17] MEDS: HYDROmorphone 1 MG/1 ML INJ IV PRN ×2 (05:56→19:39)
[2021-04-17] MEDS: PIPERACIL/TAZOBACTA 4.5/NS 100 4.5 GM/100 ML VIAL IV SCH ×2 (08:02→15:19)
[2021-04-17] MEDS: HEPARIN 5,000 UNIT/1 ML VIAL SUB-Q SCH ×5 (08:02→22:35)
[2021-04-17] MEDS: metFORMIN 500 MG TAB PO SCH ×2 (08:15→18:26)
[2021-04-17] MEDS: hydrOXYzine PAMOATE 25 MG CAP PO SCH ×3 (08:15→20:00)
[2021-04-17] MEDS: MUPIROCIN 2% OINT 22 GM TP SCH ×3 (08:16→22:00)
[2021-04-17] MEDS: FAMOTIDINE 20 MG TAB PO SCH ×3 (09:26→22:35)
[2021-04-17] MEDS ORDERED: metFORMIN 500 MG TAB PO SCH (10:00)
[2021-04-17] MEDS: buPROPion SR 150 MG TAB PO SCH (12:30)
--- NOTE | 2021-04-17 19:16 | Progress Note ---
Assessment and Plan Assessment and plan: --Cellulitis bilateral lower extremity; Current Visit: Yes Status: Acute Elevate the limb , empiric antibiotics , follow cultures Wound care , ID/surgical consult after the wound care evaluation if needed -- Multiple open wounds/different stages/diabetic ulcers Current Visit: Yes Status: Acute Zosyn 4.5 g IV every 8 hours. Follow cultures --h/o Type II diabetes Current Visit: No Status: Acute Accu-Chek, sliding scale coverage, ADA diet Insulin as needed, check A1c --History of major depression; Current Visit: No Status: Acute Patient denies depressive thoughts or suicidal thoughts Not on any medications, consult psych --History of bipolar, schizophrenia; Current Visit: No Status: Chronic Not on any medications, psych consult --Ongoing tobacco use; Current Visit: No Status: Chronic Smoking cessation counseling done Advised nicotine patch as needed --Recreational drug use; Current Visit: No Status: Chronic Strongly advised to quit recreational drug use --DVT prophylaxis Current Visit: Yes Status: Acute Heparin 5000 units subcu every 8 hours . --discharge planning; Patient has multiple social issues Case management to assist We will closely monitor the patient and adjust management as needed Plan of care reviewed with the patient and his nurse I called patient's grandmother Ms. Jeannie Mcmullen at [phone] and discussed extensively about patient's condition Tests and reports. Treatment plan. Try to get more medical history however she informed me that. She has no contact with him The last 1 year. She came to know when the hospital nurse tried to contact her. She says she would talk to the lining caser/social worker school tomorrow Advance care plan, spent total 40 minutes History Interval history: I have seen and examined the patient at the bedside Patient's chart and medications reviewed Patient complains of pain due to multiple wounds on the extremities Afebrile Hospitalist Physical - Constitutional Vitals: Temp Pulse Resp BP Pulse Ox 97.5 F L 80 18 96/53 99 04/17/21 16:18 04/17/21 16:18 04/17/21 16:18 04/17/21 16:18 04/17/21 16:18 General appearance: Present: no acute distress, well-nourished - EENT Eyes: Present: PERRL, EOM intact - Neck Neck: Present: supple, normal ROM - Respiratory Respiratory effort: normal Respiratory: bilateral: diminished, negative: rales, rhonchi, wheezing - Cardiovascular Rhythm: regular Heart Sounds: Present: S1 & S2 - Extremities Extremities: abnormal (Multiple infected wounds all extremities) Extremity abnormal: other (Cellulitis bilateral lower extremity) - Abdominal General gastrointestinal: soft, non-tender, non-distended, normal bowel sounds - Integumentary Integumentary: Present: clear, warm - Psychiatric Psychiatric: appropriate mood/affect, cooperative - Neurologic Neurologic: moves all extremities Results - Labs CBC & Chem 7: 04/17/21 03:05 04/17/21 03:05 Labs: Laboratory Last Values WBC 5.7 K/mm3 (4.5-11.0) 04/17/21 03:05 RBC 3.92 M/mm3 (3.65-5.03) 04/17/21 03:05 Hgb 8.8 gm/dl (11.8-15.2) L 04/17/21 03:05 Hct 27.6 % (35.5-45.6) L 04/17/21 03:05 MCV 70 fl (84-94) L 04/17/21 03:05 MCH 23 pg (28-32) L 04/17/21 03:05 MCHC 32 % (32-34) 04/17/21 03:05 RDW 18.5 % (13.2-15.2) H 04/17/21 03:05 Plt Count 277 K/mm3 (140-440) 04/17/21 03:05 Lymph % (Auto) 16.2 % (13.4-35.0) 04/17/21 03:05 [place] % (Auto) 10.1 % (0.0-7.3) H 04/17/21 03:05 Eos % (Auto) 8.0 % (0.0-4.3) H 04/17/21 03:05 Baso % (Auto) 0.5 % (0.0-1.8) 04/17/21 03:05 Lymph # (Auto) 0.9 K/mm3 (1.2-5.4) L 04/17/21 03:05 [place] # (Auto) 0.6 K/mm3 (0.0-0.8) 04/17/21 03:05 Eos # (Auto) 0.5 K/mm3 (0.0-0.4) H 04/17/21 03:05 Baso # (Auto) 0.0 K/mm3 (0.0-0.1) 04/17/21 03:05 Seg Neutrophils % 65.2 % (40.0-70.0) 04/17/21 03:05 Seg Neutrophils # 3.7 K/mm3 (1.8-7.7) 04/17/21 03:05 Sodium 138 mmol/L (137-145) 04/17/21 03:05 Potassium 4.2 mmol/L (3.6-5.0) 04/17/21 03:05 Chloride 100.1 mmol/L (98-107) 04/17/21 03:05 Carbon Dioxide 27 mmol/L (22-30) 04/17/21 03:05 Anion Gap 15 mmol/L 04/17/21 03:05 BUN 13 mg/dL (9-20) 04/17/21 03:05 Creatinine 0.7 mg/dL (0.8-1.3) L 04/17/21 03:05 Estimated GFR > 60 ml/min 04/17/21 03:05 BUN/Creatinine Ratio 19 % 04/17/21 03:05 Glucose 148 mg/dL (75-100) H 04/17/21 03:05 Calcium 9.2 mg/dL (8.4-10.2) 04/17/21 03:05 Total Bilirubin 0.20 mg/dL (0.1-1.2) 04/17/21 03:05 AST 78 units/L (5-40) H 04/17/21 03:05 ALT 33 units/L (7-56) 04/17/21 03:05 Alkaline Phosphatase 160 units/L (35-129) H 04/17/21 03:05 Total Protein 7.7 g/dL (6.3-8.2) 04/17/21 03:05 Albumin 4.0 g/dL (3.9-5) 04/17/21 03:05 Albumin/Globulin Ratio 1.1 % 04/17/21 03:05 Gill/IV: Voiding Method Toilet Active Medications - Current Medications Current Medications: Generic Name Dose Route Start Last Admin Trade Name Freq PRN Reason Stop Dose Admin Acetaminophen 650 mg 04/17/21 05:22 Acetaminophen 325 Mg Tab PO Q4H PRN Pain MILD(1-3)/Fever >100.5/BREEN Albuterol 2.5 mg 04/17/21 05:22 Albuterol 2.5 Mg/3 Ml Nebu IH Q4HRT PRN Shortness Of Breath Bupropion HCl 150 mg 04/17/21 10:00 04/17/21 12:30 Bupropion Sr 150 Mg Tab PO Not Given DAILY [facility]IARA Diphenhydramine HCl 50 mg 04/17/21 05:24 Diphenhydramine 50 Mg Cap PO Q8HR PRN Itching Famotidine 20 mg 04/17/21 10:00 04/17/21 09:26 Famotidine 20 Mg Tab PO 20 mg BID KIARA Administration Heparin Sodium (Porcine) 5,000 unit 04/17/21 06:00 04/17/21 14:58 Heparin 5,000 Unit/1 Ml Vial SUB-Q Not Given Q8HR KIARA Hydromorphone HCl 0.5 mg 04/17/21 05:22 04/17/21 05:56 Hydromorphone 1 Mg/1 Ml Inj IV 0.5 mg Q3H PRN Administration Pain , Severe (7-10) Hydroxyzine Pamoate 25 mg 04/17/21 08:00 04/17/21 15:18 Hydroxyzine Pamoate 25 Mg Cap PO 25 mg TID KIARA Administration Piperacillin Sod/Tazobactam Sod 4.5 gm in 100 mls @ 200 mls/hr 04/17/21 06:00 04/17/21 18:26 Zosyn/Ns 4.5gm/100ml IV Infused Q8H [facility] Infusion Protocol Ibuprofen 600 mg 04/17/21 05:24 Ibuprofen 600 Mg Tab PO Q8H PRN Pain, Mild (1-3) Metformin HCl 500 mg 04/17/21 08:00 04/17/21 18:26 Metformin 500 Mg Tab PO Not Given BIDDIAB [facility] Mupirocin 1 applic 04/17/21 08:00 04/17/21 14:59 Mupirocin 2% Oint 22 Gm TP 1 applic TID [facility]IARA Administration Ondansetron HCl 4 mg 04/17/21 05:22 Ondansetron 4 Mg/2 Ml Inj IV Q8H PRN Nausea And Vomiting Oxycodone/Acetaminophen 1 tab 04/17/21 05:22 Oxycodone /Acetaminophen 5-325mg Tab PO Q6H PRN Pain, Moderate (4-6) Sodium Chloride 10 ml 04/17/21 10:00 04/17/21 09:15 Sodium Chloride 0.9% 10 Ml Flush Syringe IV 10 ml BID KIARA Administration Sodium Chloride 10 ml 04/17/21 05:22 Sodium Chloride 0.9% 10 Ml Flush Syringe IV PRN PRN LINE FLUSH
[2021-04-17] MEDS ORDERED: VANCOMYCIN 1,250 MG in SODIUM CHLORIDE 0.9% 500 ML 500 ML IV SCH (19:45)
--- NOTE | 2021-04-17 19:56 | Event Note ---
Date: 04/17/21 I called patient's grandmother Ms. Jeannie Mcmullen at [phone] and discussed extensively about patient's condition Tests and reports. Treatment plan. Try to get more medical history however she informed me that. She has no contact with him The last 1 year. She came to know when the hospital nurse tried to contact her. She says she would talk to the case management assistant/outreach and education social worker tomorrow. I informed the nurse about this conversation.
[2021-04-17] MEDS ORDERED: VANCOMYCIN PHARMACY TO DOSE IV SCH (20:00)
[2021-04-17] MEDS ORDERED: VANCOMYCIN 1,750 MG in SODIUM CHLORIDE 0.9% 500 ML 500 ML IV ONE (21:00)
[2021-04-17] MEDS: CEFEPIME/NS 2 GM/100 ML 2 GM/100 ML BAG IV SCH (21:58)
[2021-04-18] MEDS: CEFEPIME/NS 2 GM/100 ML 2 GM/100 ML BAG IV SCH (04:06)
[2021-04-18] MEDS: HEPARIN 5,000 UNIT/1 ML VIAL SUB-Q SCH ×3 (05:12→21:55)
[2021-04-18] MEDS ORDERED: VANCOMYCIN 1,250 MG in SODIUM CHLORIDE 0.9% 250ML 250 ML IV SCH (09:00)
[2021-04-18] MEDS: hydrOXYzine PAMOATE 25 MG CAP PO SCH ×3 (10:14→20:36)
[2021-04-18] MEDS: buPROPion SR 150 MG TAB PO SCH (10:14)
--- NOTE | 2021-04-18 11:02 | Progress Note ---
Assessment and Plan Assessment and plan: --Cellulitis bilateral lower extremity; Current Visit: Yes Status: Acute Elevate the limb , empiric antibiotics , follow cultures Wound care , ID/surgical consult after the wound care evaluation if needed -- Multiple open wounds/different stages/diabetic ulcers Current Visit: Yes Status: Acute Zosyn 4.5 g IV every 8 hours. Follow cultures --h/o Type II diabetes Current Visit: No Status: Acute Accu-Chek, sliding scale coverage, ADA diet Insulin as needed, check A1c --History of major depression; Current Visit: No Status: Acute Patient denies depressive thoughts or suicidal thoughts Not on any medications, consult psych --History of bipolar, schizophrenia; Current Visit: No Status: Chronic Not on any medications, psych consult --Ongoing tobacco use; Current Visit: No Status: Chronic Smoking cessation counseling done Advised nicotine patch as needed --Recreational drug use; Current Visit: No Status: Chronic Strongly advised to quit recreational drug use --DVT prophylaxis Current Visit: Yes Status: Acute Heparin 5000 units subcu every 8 hours . --discharge planning; Patient has multiple social issues Case management to assist We will closely monitor the patient and adjust management as needed Plan of care reviewed with the patient and his nurse Dr. Norton : called patient's grandmother Ms. Jeannie Mcmullen at [phone] and discussed extensively about patient's condition Tests and reports. Treatment plan. Try to get more medical history however she informed me that. She has no contact with him The last 1 year. She came to know when the hospital nurse tried to contact her. She says she would talk to the correctional casework specialist/hospice social worker tomorrow 04/18/21 Patient with cellulitis, multiple open wounds/ulcers. Will consult ID to evaluate. Obtain Blood cultures. Cont Cefepime and vancomycin. History Interval history: Patient presented with multiple open sores Hospitalist Physical - Physical exam Narrative exam: Gen: Not in acute distress HEENT:Normocephalic,atraumatic Neck:supple, No JVD Lungs:clear to auscultation bilaterally, no wheeze Heart:S1 and S2 reg, no murmurs, rubs or gallop Abd:soft, non tender, non distended, normal bowel sounds Ext; No edema, no clubbing, no cyanosis Neuro:Awake,alert, oriented, moves all ext, skin: multiple open wounds/ulcers on both upper ext, lower ext - Constitutional Vitals: Temp Pulse Resp BP Pulse Ox 97.8 F 70 18 93/45 99 04/17/21 22:46 04/17/21 22:46 04/17/21 22:46 04/17/21 22:46 04/17/21 22:49 General appearance: Present: no acute distress, well-nourished Results - Labs CBC & Chem 7: 04/17/21 03:05 04/17/21 03:05 Labs: Laboratory Last Values WBC 5.7 K/mm3 (4.5-11.0) 04/17/21 03:05 RBC 3.92 M/mm3 (3.65-5.03) 04/17/21 03:05 Hgb 8.8 gm/dl (11.8-15.2) L 04/17/21 03:05 Hct 27.6 % (35.5-45.6) L 04/17/21 03:05 MCV 70 fl (84-94) L 04/17/21 03:05 MCH 23 pg (28-32) L 04/17/21 03:05 MCHC 32 % (32-34) 04/17/21 03:05 RDW 18.5 % (13.2-15.2) H 04/17/21 03:05 Plt Count 277 K/mm3 (140-440) 04/17/21 03:05 Lymph % (Auto) 16.2 % (13.4-35.0) 04/17/21 03:05 [place] % (Auto) 10.1 % (0.0-7.3) H 04/17/21 03:05 Eos % (Auto) 8.0 % (0.0-4.3) H 04/17/21 03:05 Baso % (Auto) 0.5 % (0.0-1.8) 04/17/21 03:05 Lymph # (Auto) 0.9 K/mm3 (1.2-5.4) L 04/17/21 03:05 [place] # (Auto) 0.6 K/mm3 (0.0-0.8) 04/17/21 03:05 Eos # (Auto) 0.5 K/mm3 (0.0-0.4) H 04/17/21 03:05 Baso # (Auto) 0.0 K/mm3 (0.0-0.1) 04/17/21 03:05 Seg Neutrophils % 65.2 % (40.0-70.0) 04/17/21 03:05 Seg Neutrophils # 3.7 K/mm3 (1.8-7.7) 04/17/21 03:05 Sodium 138 mmol/L (137-145) 04/17/21 03:05 Potassium 4.2 mmol/L (3.6-5.0) 04/17/21 03:05 Chloride 100.1 mmol/L (98-107) 04/17/21 03:05 Carbon Dioxide 27 mmol/L (22-30) 04/17/21 03:05 Anion Gap 15 mmol/L 04/17/21 03:05 BUN 13 mg/dL (9-20) 04/17/21 03:05 Creatinine 0.7 mg/dL (0.8-1.3) L 04/17/21 03:05 Estimated GFR > 60 ml/min 04/17/21 03:05 BUN/Creatinine Ratio 19 % 04/17/21 03:05 Glucose 148 mg/dL (75-100) H 04/17/21 03:05 Calcium 9.2 mg/dL (8.4-10.2) 04/17/21 03:05 Total Bilirubin 0.20 mg/dL (0.1-1.2) 04/17/21 03:05 AST 78 units/L (5-40) H 04/17/21 03:05 ALT 33 units/L (7-56) 04/17/21 03:05 Alkaline Phosphatase 160 units/L (35-129) H 04/17/21 03:05 Total Protein 7.7 g/dL (6.3-8.2) 04/17/21 03:05 Albumin 4.0 g/dL (3.9-5) 04/17/21 03:05 Albumin/Globulin Ratio 1.1 % 04/17/21 03:05 Gill/IV: Voiding Method Toilet Active Medications - Current Medications Current Medications: Generic Name Dose Route Start Last Admin Trade Name Freq PRN Reason Stop Dose Admin Acetaminophen 650 mg 04/17/21 05:22 Acetaminophen 325 Mg Tab PO Q4H PRN Pain MILD(1-3)/Fever >100.5/BREEN Albuterol 2.5 mg 04/17/21 05:22 Albuterol 2.5 Mg/3 Ml Nebu IH Q4HRT PRN Shortness Of Breath Bupropion HCl 150 mg 04/17/21 10:00 04/18/21 10:14 Bupropion Sr 150 Mg Tab PO 150 mg DAILY KIARA Administration Diphenhydramine HCl 50 mg 04/17/21 05:24 Diphenhydramine 50 Mg Cap PO Q8HR PRN Itching Famotidine 20 mg 04/17/21 10:00 04/17/21 22:35 Famotidine 20 Mg Tab PO Not Given BID [facility] Heparin Sodium (Porcine) 5,000 unit 04/17/21 06:00 04/18/21 05:12 Heparin 5,000 Unit/1 Ml Vial SUB-Q Not Given Q8HR [facility] Hydromorphone HCl 0.5 mg 04/17/21 05:22 04/17/21 19:39 Hydromorphone 1 Mg/1 Ml Inj IV 0.5 mg Q3H PRN Administration Pain , Severe (7-10) Hydroxyzine Pamoate 25 mg 04/17/21 08:00 04/18/21 10:14 Hydroxyzine Pamoate 25 Mg Cap PO 25 mg TID [facility] Administration Cefepime HCl 2 gm in 100 mls @ 200 mls/hr 04/17/21 20:00 04/18/21 05:19 Cefepime/Ns 2 Gm/100 Ml IV Infused Q8H [facility] Infusion Protocol Vancomycin HCl 1,250 mg/ 275 mls @ 166.667 mls/hr 04/18/21 09:00 04/18/21 10:13 Sodium Chloride IV 166.667 mls/hr Q12H [facility]IARA Administration Ibuprofen 600 mg 04/17/21 05:24 Ibuprofen 600 Mg Tab PO Q8H PRN Pain, Mild (1-3) Ondansetron HCl 4 mg 04/17/21 05:22 Ondansetron 4 Mg/2 Ml Inj IV Q8H PRN Nausea And Vomiting Oxycodone/Acetaminophen 1 tab 04/17/21 05:22 Oxycodone /Acetaminophen 5-325mg Tab PO Q6H PRN Pain, Moderate (4-6) Sodium Chloride 10 ml 04/17/21 10:00 04/18/21 10:15 Sodium Chloride 0.9% 10 Ml Flush Syringe IV 10 ml BID KIARA Administration Sodium Chloride 10 ml 04/17/21 05:22 Sodium Chloride 0.9% 10 Ml Flush Syringe IV PRN PRN LINE FLUSH
[2021-04-18] MEDS: FAMOTIDINE 20 MG TAB PO SCH ×2 (11:09→21:54)
[2021-04-18] MEDS ORDERED: SODIUM CHLORIDE 0.9% 1000 ML 1,000 ML IV SCH (11:45)
--- NOTE | 2021-04-18 11:45 | Consultation ---
History of Present Illness - Reason for Consult Consult date: 04/18/21 wounds Requesting physician: ZANA ROBERTSON - History of Present Illness The patient is a 30-year-old male admitted to the hospital with multiple open sores on his upper extremities. Also some wounds on his lower extremities. Was complaining of pain. Labs show no fever, no leukocytosis. Patient is a poor historian, not very forthcoming with his history. These have been present for more than 2 weeks. Patient says he is not sure how he got them. When I further questioned him, he did admit to IV drugs including methamphetamine. I asked him about his HIV status, he states it was negative a few weeks ago. Denies MSM behavior. Review of Systems: As per HPI Past History Past Medical History: diabetes, other (Cellulitis and open wounds) Medications and Allergies Allergies Allergy/AdvReac Type Severity Reaction Status Date / Time sulfamethoxazole Allergy Rash Verified 04/17/21 02:14 [From Bactrim] trimethoprim [From Bactrim] Allergy Rash Verified 04/17/21 02:14 Home Medications Medication Instructions Recorded Confirmed Last Taken Type No Known Home Medications [No 04/17/21 04/17/21 Unknown History Reported Home Medications] Active Meds: Active Medications Acetaminophen (Acetaminophen 325 Mg Tab) 650 mg PO Q4H PRN PRN Reason: Pain MILD(1-3)/Fever >100.5/BREEN Albuterol (Albuterol 2.5 Mg/3 Ml Nebu) 2.5 mg IH Q4HRT PRN PRN Reason: Shortness Of Breath Bupropion HCl (Bupropion Sr 150 Mg Tab) 150 mg PO DAILY [facility] Last Admin: 04/18/21 10:14 Dose: 150 mg Documented by: Diphenhydramine HCl (Diphenhydramine 50 Mg Cap) 50 mg PO Q8HR PRN PRN Reason: Itching Famotidine (Famotidine 20 Mg Tab) 20 mg PO BID [facility] Last Admin: 04/18/21 11:09 Dose: 20 mg Documented by: Heparin Sodium (Porcine) (Heparin 5,000 Unit/1 Ml Vial) 5,000 unit SUB-Q Q8HR [facility] Last Admin: 04/18/21 05:12 Dose: Not Given Documented by: Hydromorphone HCl (Hydromorphone 1 Mg/1 Ml Inj) 0.5 mg IV Q3H PRN PRN Reason: Pain , Severe (7-10) Last Admin: 04/17/21 19:39 Dose: 0.5 mg Documented by: Hydroxyzine Pamoate (Hydroxyzine Pamoate 25 Mg Cap) 25 mg PO TID [facility] Last Admin: 04/18/21 10:14 Dose: 25 mg Documented by: Cefepime HCl (Cefepime/Ns 2 Gm/100 Ml) 2 gm in 100 mls @ 200 mls/hr IV Q8H [facility]; Protocol Last Infusion: 04/18/21 05:19 Dose: Infused Documented by: Vancomycin HCl 1,250 mg/ (Sodium Chloride) 275 mls @ 166.667 mls/hr IV Q12H [facility] Last Admin: 04/18/21 10:13 Dose: 166.667 mls/hr Documented by: Sodium Chloride (Nacl 0.9% 1000 Ml) 1,000 mls @ 75 mls/hr IV DIRECT [facility] Ibuprofen (Ibuprofen 600 Mg Tab) 600 mg PO Q8H PRN PRN Reason: Pain, Mild (1-3) Ondansetron HCl (Ondansetron 4 Mg/2 Ml Inj) 4 mg IV Q8H PRN PRN Reason: Nausea And Vomiting Oxycodone/Acetaminophen (Oxycodone /Acetaminophen 5-325mg Tab) 1 tab PO Q6H PRN PRN Reason: Pain, Moderate (4-6) Sodium Chloride (Sodium Chloride 0.9% 10 Ml Flush Syringe) 10 ml IV BID [facility] Last Admin: 04/18/21 10:15 Dose: 10 ml Documented by: Sodium Chloride (Sodium Chloride 0.9% 10 Ml Flush Syringe) 10 ml IV PRN PRN PRN Reason: LINE FLUSH Physical Examination - Physical Exam Narrative exam: Physical Exam: Constitutional: Alert, cooperative. No acute distress Head, Ears, Nose: Normocephalic, atraumatic. External ears, nose normal Eyes: Conjunctivae/corneas clear. No icterus. No ptosis. Neck: Supple, no meningeal signs Oral: Declined Cardiovascular: S1, S2 + Respiratory: Good air entry, clear to auscultation bilaterally GI: Soft, non-tender; bowel sounds normal. No peritoneal signs Musculoskeletal: Bilateral forearms with multiple small wounds, appear to be scabbing and dry, no purulence. Declined groin, thigh exam, states he is hurting Skin: No rash or abscess Hem/Lymphatic: No palpable cervical or supraclavicular nodes. No lymphangitis Psych: Mood ok. Affect normal Neurological: Awake, alert, oriented. No gross abnormality - Constitutional Vitals: Vital Signs Temp Pulse Resp BP Pulse Ox 97.8 F 70 18 93/45 99 04/17/21 22:46 04/17/21 22:46 04/17/21 22:46 04/17/21 22:46 04/17/21 22:49 Temperature -Last 24 Hours Temperature 97.8 F Temperature 97.5 F Results - Labs CBC & Chem 7: 04/17/21 03:05 04/17/21 03:05 Assessment and Plan Cultures: None this admission A/P: 30/M with: #Open wounds on all four extremities: No obvious cellulitis or purulence seen. Some of them do appear chronic. Patient not very forthcoming with history. No fever or leukocytosis. No evidence of sepsis. 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 No role for antibiotics Recommend wound care and drug rehabilitation ID will sign off. Please call with questions Nel Brandon MD, DWIGHTP [facility] O: [phone] F: [phone]
--- NOTE | 2021-04-18 13:08 | Consultation ---
History of Present Illness - Reason for Consult Consult date: 04/18/21 Reason for consult: Mental health eval - History of Present Psychiatric Illness The patient was seen today. He is lying down with his eyes closed. The patient is irritable and rude. He tells me he doesn't feel like being bothered and to come back. I tell the patient that I just need a few minutes of his time then I'll leave, he partially cooperates. He states he came to the hospital for wounds on his arms. He then says "I don't feel good, can you please leave me a lone." The patient then answers "no" to the rest of the questions. He denies SI/HI or hallucinations or being on any medications. He says "no, no, I haven't had nothing like that. I'm tired." PAST PSYCHIATRIC HISTORY: Diagnoses: Denies Suicide attempts or Self-harm behavior: Denies Prior psychiatric hospitalizations: Denies Substance Abuse history: Denies Previous psychiatric medications tried: Denies Outpatient treatment: Denies PAST MEDICAL HISTORY: None reported or document Family Psychiatric History: None reported or documented SOCIAL HISTORY Marital Status: Single Living Arrangements: "with nobody" Employment Status: Unemployed Access to guns/weapons: Denies Education: History of Abuse:Yes Legal History: Denies REVIEW OF SYSTEMS Constitutional: Negative for weight loss ENT: Negative for stridor Respiratory: Negative for cough or hemoptysis All other systems reviewed and are negative MENTAL STATUS EXAMINATION General Appearance and Behavior: Age appropriate, good hygiene, wearing appropriate clothes. Cooperation: uncooperative Psychomotor Behavior: Psychomotor normal Mood: uncooperative, irritable Affect and affective range: congruent with stated mood Thought Process: circumstantial Thought Content: None Speech: Normal volume, Regular rate and rhythm, Suicidal Ideation: Denies Homicidal Ideation: Denies Hallucinations: Denies Delusions: None elicited Impulse Control: Unimpaired Insight and Judgment: limited Memory: limited Attention: Distractible Orientation: alert and oriented Assessment and Plan (1) Mood Disorder, Unspecified Current Visit: Yes Status: Acute Treatment Plan Agree with prescribed meds Sitter: per medical Medical: per primary Disposition: Do not recommend acute psychiatric inpatient treatment Will sign off. Thanks Case staffed with Dr. Grossman Medications and Allergies Allergies Allergy/AdvReac Type Severity Reaction Status Date / Time sulfamethoxazole Allergy Rash Verified 04/17/21 02:14 [From Bactrim] trimethoprim [From Bactrim] Allergy Rash Verified 04/17/21 02:14 Home Medications Medication Instructions Recorded Confirmed Last Taken Type No Known Home Medications [No 04/17/21 04/17/21 Unknown History Reported Home Medications] Active Meds: Active Medications Acetaminophen (Acetaminophen 325 Mg Tab) 650 mg PO Q4H PRN PRN Reason: Pain MILD(1-3)/Fever >100.5/BREEN Albuterol (Albuterol 2.5 Mg/3 Ml Nebu) 2.5 mg IH Q4HRT PRN PRN Reason: Shortness Of Breath Bupropion HCl (Bupropion Sr 150 Mg Tab) 150 mg PO DAILY [facility] Last Admin: 04/18/21 10:14 Dose: 150 mg Documented by: Diphenhydramine HCl (Diphenhydramine 50 Mg Cap) 50 mg PO Q8HR PRN PRN Reason: Itching Famotidine (Famotidine 20 Mg Tab) 20 mg PO BID [facility] Last Admin: 04/18/21 11:09 Dose: 20 mg Documented by: Heparin Sodium (Porcine) (Heparin 5,000 Unit/1 Ml Vial) 5,000 unit SUB-Q Q8HR [facility] Last Admin: 04/18/21 05:12 Dose: Not Given Documented by: Hydromorphone HCl (Hydromorphone 1 Mg/1 Ml Inj) 0.5 mg IV Q3H PRN PRN Reason: Pain , Severe (7-10) Last Admin: 04/17/21 19:39 Dose: 0.5 mg Documented by: Hydroxyzine Pamoate (Hydroxyzine Pamoate 25 Mg Cap) 25 mg PO TID [facility] Last Admin: 04/18/21 10:14 Dose: 25 mg Documented by: Sodium Chloride (Nacl 0.9% 1000 Ml) 1,000 mls @ 75 mls/hr IV DIRECT [facility] Ibuprofen (Ibuprofen 600 Mg Tab) 600 mg PO Q8H PRN PRN Reason: Pain, Mild (1-3) Ondansetron HCl (Ondansetron 4 Mg/2 Ml Inj) 4 mg IV Q8H PRN PRN Reason: Nausea And Vomiting Oxycodone/Acetaminophen (Oxycodone /Acetaminophen 5-325mg Tab) 1 tab PO Q6H PRN PRN Reason: Pain, Moderate (4-6) Sodium Chloride (Sodium Chloride 0.9% 10 Ml Flush Syringe) 10 ml IV BID [facility] Last Admin: 04/18/21 10:15 Dose: 10 ml Documented by: Sodium Chloride (Sodium Chloride 0.9% 10 Ml Flush Syringe) 10 ml IV PRN PRN PRN Reason: LINE FLUSH Mental Status Exam - Vital signs Last Vital Signs Temp 97.8 F 04/17/21 22:46 Pulse 70 04/17/21 22:46 Resp 18 04/17/21 22:46 BP 93/45 04/17/21 22:46 Pulse Ox 99 04/17/21 22:49 Results Result Diagrams: 04/17/21 03:05 04/17/21 03:05 All other labs normal.
[2021-04-18] MEDS: HYDROmorphone 1 MG/1 ML INJ IV PRN (21:49)
[2021-04-19] MEDS: HEPARIN 5,000 UNIT/1 ML VIAL SUB-Q SCH (06:39)
--- NOTE | 2021-04-19 11:56 | Discharge Summary ---
Providers - Providers Date of Admission: 04/18/21 14:05 Date of discharge: 04/19/21 Attending physician: ZANA ROBERTSON 04/17/21 05:31 Consult to Wound/ET Nurse [CONS] Routine Reason For Exam: wound eval 04/17/21 19:35 psychiatry consult [Consult to Mental Health] [CONS] Routine Reason For Exam: History of major depression 04/18/21 11:22 Consult to Physician [CONS] Routine Comment: Consulting Provider: GILL NUGENT Physician Instructions: Reason For Exam: Multiple infected open skin ulcers/wounds Primary care physician: [employer] Hospitalization Condition: Stable Hospital course: patient is 30 yo presented with old multiple open wound and extremity swelling for the last couple of days. Patient is having severe pain. Patient states that he has previously taken antibiotic. In the emergency room patient is found to have multiple open in both upper and lower extremities. He was admitted, evaluated by ID Physician. However ID Physician stated he does not need Antibiotics, and only needs wound care. He was therefore discharged home to follow with wound clinic as outpatient. -- Multiple open wounds/different stages/diabetic ulcers Current Visit: Yes Status: Acute Initially Started on Zosyn 4.5 g IV every 8 hours, however after seen bu ID Physician he does not recommend Antibiotics --h/o Type II diabetes Current Visit: No Status: Acute Accu-Chek, sliding scale coverage, ADA diet Insulin as needed, check A1c --History of major depression; Current Visit: No Status: Acute Patient denies depressive thoughts or suicidal thoughts Not on any medications, consult psych --History of bipolar, schizophrenia; Current Visit: No Status: Chronic Not on any medications, psych consult --Ongoing tobacco use; Current Visit: No Status: Chronic Smoking cessation counseling done Advised nicotine patch as needed --Recreational drug use; Current Visit: No Status: Chronic Strongly advised to quit recreational drug use --DVT prophylaxis Current Visit: Yes Status: Acute Heparin 5000 units subcu every 8 hours . --discharge planning; Patient has multiple social issues Case management to assist We will closely monitor the patient and adjust management as needed Plan of care reviewed with the patient and his nurse Dr. Norton : called patient's grandmother Ms. Jeannie Mcmullen at [phone] and discussed extensively about patient's condition Tests and reports. Treatment plan. Try to get more medical history however she informed me that. She has no contact with him The last 1 year. She came to know when the hospital nurse tried to contact her. She says she would talk to the nurse outreach case manager/social worker assistant tomorrow 04/18/21 Patient with cellulitis, multiple open wounds/ulcers. Will consult ID to evaluate. Obtain Blood cultures. Cont Cefepime and vancomycin. 04/19/21/ Patient discharged home. Disposition: 01 HOME / SELF CARE / HOMELESS Final Discharge Diagnosis (Prints w/discharge instructions): 1.Multiple open w ounds. Time spent for discharge: 34 mins - Discharge Diagnoses (1) Multiple open wounds Status: Acute (2) Mood disorder Status: Acute Core Measure Documentation - Palliative Care Palliative Care/ Comfort Measures: Not Applicable - Core Measures Any of the following diagnoses?: none Exam - Constitutional Vitals: Temp Pulse Resp BP Pulse Ox 97.8 F 70 18 93/45 96 04/17/21 22:46 04/17/21 22:46 04/17/21 22:46 04/17/21 22:46 04/18/21 22:00 Plan Activity: advance as tolerated Diet: regular Plan of Treatment: 1.Follow up with PCP or [facility] in 1 week. 2.Follow up at Wound clinic in 2-3 days for multiple open wounds Follow up with: PRIMARY MD PIPPA [Primary Care Provider] - 3-5 Days
[2021-04-19 12:31] VITALS: BP 119/76
== END 2021-04-19 14:45 | disposition home or self-care (01) | DRG 603 ==
LOC: ED 01:58 → 3A 03:53 → OBSVTOIN 04-18 14:05
PROVIDERS: ADMIT Hospitalist; ATTEND Internal Medicine
DX: L03.116 Cellulitis of left lower limb (principal); T07.XXXA Unspecified multiple injuries, initial encounter; L03.115 Cellulitis of right lower limb; Y93.9 Activity, unspecified; Y92.89 Other specified places as the place of occurrence of the external cause; E11.9 Type 2 diabetes mellitus without complications; D32.9 Benign neoplasm of meninges, unspecified; F15.90 Other stimulant use, unspecified, uncomplicated; F19.90 Other psychoactive substance use, unspecified, uncomplicated; F20.9 Schizophrenia, unspecified; F39 Unspecified mood [affective] disorder; Z20.822 Contact with and (suspected) exposure to COVID-19
CPT/HCPCS: 36415; 80053; 85025; G0378; J0692; J1170; J1200; J1644; J2405; J2543; J3370; J7030; J7040; J7050; Q0177